=== PATIENT | male | born 1955 | race African-American/Black ===

== ENCOUNTER 2024-04-16 05:26 | Day surgery (SDC) | payer MEDICARE, OTHER ==
[2024-04-16 09:17] VITALS: BMI 25.0
[2024-04-16 10:58] VITALS: RESP 16
[2024-04-16 11:00] VITALS: BP 120/67; PULSE 64; TEMP 97.8
== END 2024-04-16 11:17 | disposition home or self-care (01) ==
LOC: JASU-ENDO 05:26
PROVIDERS: ATTEND Internal Medicine Gastroenterology
PROC: 0DBN8ZX Excision of Sigmoid Colon, Via Natural or Artificial Opening Endoscopic, Diagnostic (ICD-10-PCS; 2024-04-16)
PROC: 0DBP8ZX Excision of Rectum, Via Natural or Artificial Opening Endoscopic, Diagnostic (ICD-10-PCS; principal; 2024-04-16 10:00)
DX: Z12.11 Encounter for screening for malignant neoplasm of colon (principal); D12.8 Benign neoplasm of rectum; K63.5 Polyp of colon; K64.8 Other hemorrhoids; Z86.0100 Personal history of colon polyps, unspecified
CPT/HCPCS: 88305-TC